=== PATIENT | male | born 1960 | race Asian ===

== ENCOUNTER 2022-04-21 09:10 | Day surgery (SDC) | payer BC ==
[~2022-04-21] VITALS: Ht 165.1 cm; Wt 72.6 kg
[~2022-04-21 09:10] MED LIST: ALLOPURINOL300 MG PO; [UNRECOGNIZED DRUG - REMARK]; [UNRECOGNIZED DRUG - REMARK]
[2022-04-21 10:51] VITALS: BP 107/76
== END 2022-04-21 11:10 | disposition home or self-care (01) | DRG 951 ==
LOC: ENDO 09:10
PROVIDERS: ATTEND Surgery
PROC: 0DJD8ZZ Inspection of Lower Intestinal Tract, Via Natural or Artificial Opening Endoscopic (ICD-10-PCS; principal; 2022-04-21)
DX: Z12.11 Encounter for screening for malignant neoplasm of colon (principal)